=== PATIENT | male | born 1955 | race Caucasian/White ===

== ENCOUNTER 2019-01-26 15:33 | Emergency (ER) | payer BC ==
--- NOTE | 2019-01-26 16:04 | EDM.PDOC ---
ED HPI GENERAL MEDICAL PROBLEM - General Chief Complaint: General Stated Complaint: UNSTEADY Time Seen by Provider: 01/26/19 15:55 Source of Information: Reports: Patient, Family - History of Present Illness INITIAL COMMENTS - FREE TEXT/NARRATIVE: Jose is a 63 y/o male who comes to the ER after he started to not feel very well. He ate about 2 pm and then reports taking a new injectable DM medication that he was prescribed at [facility]. Today is the first time he has taken the med and it made him nauseated and gave him heartburn and he felt very weak. His son brought him to the ER since he though perhaps he was allergic to it. When RESIDENTIAL ROOFER went into assess patient he reports feeling fine again. - Related Data Allergies Allergy/AdvReac Type Severity Reaction Status Date / Time No Known Allergies Allergy Verified 01/26/19 15:50 Home Meds: Home Meds . [Unable to Verify Home Med List] 01/26/19 [History] ED ROS GENERAL - Review of Systems Review Of Systems: See Below Constitutional: Reports: Malaise, Weakness HEENT: Reports: No Symptoms Respiratory: Reports: No Symptoms Cardiovascular: Reports: No Symptoms Endocrine: Reports: No Symptoms GI/Abdominal: Reports: Nausea, Other (heartburn) : Reports: No Symptoms Musculoskeletal: Reports: No Symptoms Skin: Reports: No Symptoms Neurological: Reports: Dizziness Psychiatric: Reports: No Symptoms Hematologic/Lymphatic: Reports: No Symptoms Immunologic: Reports: No Symptoms ED EXAM, GENERAL - Physical Exam Exam: See Below Exam Limited By: No Limitations General Appearance: Alert, WD/WN, No Apparent Distress Eye Exam: Bilateral Eye: PERRL Ears: Normal External Exam, Normal Canal, Hearing Grossly Normal Nose: Normal Inspection, Normal Mucosa, No Blood Throat/Mouth: Normal Inspection, Normal Teeth, Normal Gums, Normal Voice Head: Atraumatic, Normocephalic Neck: Normal Inspection, Supple, Non-Tender Respiratory/Chest: No Respiratory Distress, Lungs Clear, Normal Breath Sounds, Chest Non-Tender Cardiovascular: Normal Peripheral Pulses, Regular Rate, Rhythm, No Edema, No Murmur GI/Abdominal: Normal Bowel Sounds, Soft, Non-Tender, No Organomegaly (Male) Exam: Deferred Rectal (Males) Exam: Deferred Back Exam: Normal Inspection Extremities: Normal Inspection, Normal Range of Motion, No Pedal Edema, Normal Capillary Refill Neurological: Alert, Oriented, CN II-XII Intact, Normal Cognition, No Motor/ Sensory Deficits Psychiatric: Normal Affect, Normal Mood Skin Exam: Warm, Dry, Intact, Normal Color, No Rash Lymphatic: No Adenopathy Course - Vital Signs Text/Narrative:: The patient was seen by the RESIDENTIAL ROOFER. RN checke blood sugar and it was 237. Patient reported his symptoms were gone and what he experienced they did warn him might happen but he reports it caught him off guard. He declined any further diagnostics and was ready to go home. He was given discharge instructions and left the ER in stable condition with his son. Departure - Departure Time of Disposition: 16:02 Disposition: Home, Self-Care 01 Condition: Good Clinical Impression: Diabetes mellitus - Discharge Information *PRESCRIPTION DRUG MONITORING PROGRAM REVIEWED*: Not Applicable *COPY OF PRESCRIPTION DRUG MONITORING REPORT IN PATIENT JUDY: Not Applicable Instructions: Type 2 Diabetes Mellitus, Diagnosis, Adult, [id number] Referrals: PCP,Not In Area [Primary Care Provider] - Additional Instructions: -Resume your medications as prescribed by your PCP -Keep follow up appts as previously scheduled -Return to the ER if you have further concerns
== END 2019-01-26 16:05 | disposition home or self-care (01) ==
LOC: VM.ED 15:33
DX: E11.9 Type 2 diabetes mellitus without complications (principal)
CPT/HCPCS: 82962; 99283